=== PATIENT | female | born 1960 | race Two or more races ===

== ENCOUNTER 2022-06-18 10:40 | Emergency (ER) | payer OTHER ==
[~2022-06-18] VITALS: Ht 142.2 cm; Wt 110.0 kg
[2022-06-18 11:30] LABS: Basophils # (auto) 0 10 ^3/uL (0-0.2); Basophils % (auto) 0.3 % (0.0-2.0); Eosinophils # (auto) 0.1 10 ^3/uL (0-0.8); Eosinophils % (auto) 2.2 % (0.0-7.0); Hematocrit 35.3 % (36.0-46.0); Hemoglobin 11.3 g/dL (12.2-16.2); Lymphocytes # (auto) 1.3 10 ^3/uL (0.4-5.4); Lymphocytes % (auto) 30.7 % (10.0-50.0); Mean Corpuscular Hemoglobin 27.5 pg (28.0-32.0); Mean Corpuscular Volume 86.1 fL (80.0-100.0); Monocytes # (auto) 0.4 10 ^3/uL (0-1.3); Neutrophils # (auto) 2.5 10 ^3/uL (1.6-8.6); Neutrophils % (auto) 57.8 % (37.0-80.0); Red Cell Distribution Width 18.1 % (11.8-14.3); White Blood Cell 4.3 10^3/uL (4.4-10.8)
[2022-06-18 11:59] LABS: Albumin 3.2 g/dL (3.4-5.0); BUN/Creatinine Ratio 21.9; Calcium 9.1 mg/dL (8.5-10.1); Potassium 3.9 mmol/L (3.5-5.1)
[2022-06-18 12:02] LABS: Bilirubin, Total 0.6 mg/dL (0.2-1.0)
[2022-06-18 17:29] VITALS: BP 150/64
== END 2022-06-18 17:36 | disposition home or self-care (01) ==
LOC: ER 10:40
DX: R07.89 Other chest pain (principal); R60.9 Edema, unspecified; E11.9 Type 2 diabetes mellitus without complications; I10 Essential (primary) hypertension
CPT/HCPCS: 36415; 71046; 80053; 83880; 84484; 85025; 93005

== ENCOUNTER 2022-08-17 18:43 | Inpatient (IN) | payer OTHER ==
[~2022-08-17] VITALS: Ht 142.2 cm; Wt 100.0 kg
[2022-08-17] MEDS ORDERED: ASPirin 325 MG TAB PO ONE (19:00)
[2022-08-17 19:24] LABS: Basophils # (auto) 0 10 ^3/uL (0-0.2); Basophils % (auto) 0.3 % (0.0-2.0); Eosinophils # (auto) 0.1 10 ^3/uL (0-0.8); Eosinophils % (auto) 1.5 % (0.0-7.0); Hematocrit 38.6 % (36.0-46.0); Hemoglobin 12.8 g/dL (12.2-16.2); Lymphocytes # (auto) 1.3 10 ^3/uL (0.4-5.4); Lymphocytes % (auto) 32.2 % (10.0-50.0); Mean Corpuscular Hemoglobin 28.7 pg (28.0-32.0); Mean Corpuscular Hgb Conc. 33.2 g/dL (32.0-36.0); Mean Corpuscular Volume 86.4 fL (80.0-100.0); Monocytes # (auto) 0.3 10 ^3/uL (0-1.3); Neutrophils # (auto) 2.3 10 ^3/uL (1.6-8.6); Nucleated Red Blood Cells % 0.2 %; Red Blood Cells 4.46 10^6/uL (4.0-5.20); Red Cell Distribution Width 17.5 % (11.8-14.3)
[2022-08-17 19:46] LABS: Albumin 3.3 g/dL (3.4-5.0); BUN/Creatinine Ratio 26.9; Calcium 8.1 mg/dL (8.5-10.1); Potassium 4.2 mmol/L (3.5-5.1)
[2022-08-17 19:49] LABS: Bilirubin, Total 0.4 mg/dL (0.2-1.0); Total Protein 6.7 g/dL (6.4-8.2)
[2022-08-17] MEDS ORDERED: HYDROmorphone HCL 2 MG/ML VL/or syr IV ONE (23:15)
[2022-08-17] MEDS ORDERED: ONDANSETRON HCL 4 MG/2 ML VIAL IV ONE (23:30)
[2022-08-17] MEDS ORDERED: HYDROcodone-ACET 5/325MG TAB PO PRN (23:45)
[2022-08-17] MEDS ORDERED: MORPHINE SULFATE INJ 2 MG/ml SYRG IV PRN (23:45)
[2022-08-17] MEDS ORDERED: SODIUM CHLORIDE 0.9% 1,000 ML IV SCH (23:45)
[2022-08-17] MEDS ORDERED: ACETAMINOPHEN 325 MG TAB PO PRN (23:45)
[2022-08-17] MEDS ORDERED: ALBUMIN 25% 100 ML IV ONE (23:45)
[2022-08-17] MEDS ORDERED: DOCUSATE SOD 100 MG CAP PO PRN (23:45)
[2022-08-17] MEDS ORDERED: ONDANSETRON HCL 4 MG/2 ML VIAL IV PRN (23:45)
[2022-08-18] MEDS ORDERED: NITROGLYCERIN 0.4 MG SL TAB SL PRN (00:30)
[2022-08-18] MEDS ORDERED: MORPHINE SULFATE INJ 2 MG/ml SYRG IV PRN (00:30)
[2022-08-18 04:12] LABS: Basophils # (auto) 0 10 ^3/uL (0-0.2); Basophils % (auto) 0.3 % (0.0-2.0); Eosinophils # (auto) 0.1 10 ^3/uL (0-0.8); Eosinophils % (auto) 1.2 % (0.0-7.0); Hematocrit 35.5 % (36.0-46.0); Hemoglobin 12.1 g/dL (12.2-16.2); Lymphocytes # (auto) 1.4 10 ^3/uL (0.4-5.4); Lymphocytes % (auto) 28.8 % (10.0-50.0); Mean Corpuscular Hemoglobin 29.4 pg (28.0-32.0); Mean Corpuscular Hgb Conc. 34.1 g/dL (32.0-36.0); Mean Corpuscular Volume 86.2 fL (80.0-100.0); Monocytes # (auto) 0.3 10 ^3/uL (0-1.3); Monocytes % (auto) 6.8 % (0.0-12.0); Neutrophils # (auto) 3.1 10 ^3/uL (1.6-8.6); Neutrophils % (auto) 62.9 % (37.0-80.0); Nucleated Red Blood Cells % 0.1 %; Red Blood Cells 4.11 10^6/uL (4.0-5.20); Red Cell Distribution Width 18.2 % (11.8-14.3); White Blood Cell 4.9 10^3/uL (4.4-10.8)
[2022-08-18 04:30] LABS: Albumin 3.5 g/dL (3.4-5.0); Calcium 8.3 mg/dL (8.5-10.1); Potassium 3.6 mmol/L (3.5-5.1)
[2022-08-18 04:33] LABS: BUN/Creatinine Ratio 23.5
[2022-08-18 04:35] LABS: Bilirubin, Total 0.5 mg/dL (0.2-1.0); Total Protein 6.7 g/dL (6.4-8.2)
[2022-08-18] MEDS: ASPirin 81 mg TAB PO SCH (10:03)
[2022-08-18] MEDS: FAMOTIDINE (10MG/ML) 2ML VL IV SCH ×2 (10:03→22:22)
[2022-08-18] MEDS: SODIUM CHLORIDE 0.9% 1,000 ML IV SCH ×2 (12:09→18:40)
[2022-08-18 22:57] VITALS: BP 119/48
[2022-08-18] MEDS ORDERED: ALEN70TA74 PO (23:15)
[2022-08-18] MEDS ORDERED: MET50T GT (23:15)
[2022-08-18] MEDS ORDERED: LOSA-39 PO (23:15)
[2022-08-18] MEDS ORDERED: DOXA4TAB6 PO (23:15)
[2022-08-18] MEDS ORDERED: ATOR40TA52 PO (23:15)
[2022-08-18] MEDS ORDERED: AMLO-496 PO (23:15)
[2022-08-18] MEDS ORDERED: PIOG1TAB37 PO (23:15)
[2022-08-18] MEDS ORDERED: HYDR25TA5 PO (23:15)
[2022-08-18] MEDS ORDERED: FER325T PO (23:16)
[2022-08-18] MEDS ORDERED: CHOL20007 PO ×2 (23:16→23:17)
[2022-08-19] MEDS: SODIUM CHLORIDE 0.9% 1,000 ML IV SCH ×4 (01:10→21:30)
[2022-08-19 05:00] VITALS: BP 127/64
[2022-08-19 09:00] VITALS: BP 147/76
[2022-08-19] MEDS: FAMOTIDINE (10MG/ML) 2ML VL IV SCH ×2 (09:53→22:21)
[2022-08-19] MEDS: ASPirin 81 mg TAB PO SCH (09:53)
[2022-08-19 12:00] VITALS: BP 105/66
[2022-08-19 17:00] VITALS: BP 154/61
[2022-08-19 20:00] VITALS: BP 131/59
[2022-08-19 21:47] VITALS: BP 131/59
[2022-08-20] MEDS: SODIUM CHLORIDE 0.9% 1,000 ML IV SCH (04:30)
[2022-08-20 05:00] VITALS: BP 146/82
[2022-08-20 08:00] VITALS: BP 142/68
[2022-08-20 08:25] VITALS: BP 152/74
[2022-08-20] MEDS: ASPirin 81 mg TAB PO SCH (09:18)
[2022-08-20] MEDS: FAMOTIDINE (10MG/ML) 2ML VL IV SCH (09:19)
[2022-08-20] MEDS ORDERED: PANT40T PO (10:04)
[2022-08-20 12:25] VITALS: BP 168/69
[2022-08-20 12:36] VITALS: BP 146/75
== END 2022-08-20 14:30 | disposition home or self-care (01) | DRG 282 ==
LOC: ER 18:43 → EDBD 18:43 → OVERFLOW 08-18 00:21 → TELE-CENTR 08-18 22:04
PROVIDERS: ADMIT Nurse Practitioner Family; ATTEND Family Medicine
DX: K85.90 Acute pancreatitis without necrosis or infection, unspecified (principal); I95.9 Hypotension, unspecified; E44.0 Moderate protein-calorie malnutrition; I10 Essential (primary) hypertension; E66.01 Morbid (severe) obesity due to excess calories; E11.9 Type 2 diabetes mellitus without complications; E86.0 Dehydration; R00.1 Bradycardia, unspecified; E78.5 Hyperlipidemia, unspecified; Z20.822 Contact with and (suspected) exposure to COVID-19; Z90.49 Acquired absence of other specified parts of digestive tract; Z68.42 Body mass index [BMI] 45.0-49.9, adult
CPT/HCPCS: 36415; 71045; 74176; 80053; 80320; 83690; 83880; 84443; 84484; 85025; 87426; 93005; 93306; 96365; 96375; 96376; G0378; J2405; J3490; P9047